=== PATIENT | female | born 1975 | race Two or more races ===

== ENCOUNTER 2024-12-22 12:54 | Emergency (ER) | payer BC, SELFPAY ==
[2024-12-22] VITALS (11 sets, daily range): BP systolic 104–150; BP diastolic 65–107
--- NOTE | 2024-12-22 13:02 | ED.GENMED ---
History of Present Illness
General
Chief Complaint: Allergic Reaction
Time Seen by Provider: 12/22/24 13:02
History of Present Illness
History of Present Illness:
FOCUSED PAST MEDICAL HISTORY
- No significant past medical history
REVIEW OF OLD RECORDS
- No old records available for review in [facility]
Note:
CHIEF COMPLAINT(S)
Throat swelling following consumption of a chestnut.
HISTORY OF PRESENT ILLNESS
The patient is a 49-year-old female who presented to the emergency department due to the sensation of throat swelling, onset approximately 10 minutes after consuming part of a chestnut that fell from a chestnut tree. The patient described a
sensation of her throat closing up and noted nasal involvement as well, although specific symptoms were not delineated. The patient did not self-administer epinephrine at home and does not have a known allergy to tree nuts, despite her relative
having such an allergy.
PHYSICAL EXAM
General: The patient has evidence of an acute allergic reaction which is at least moderate in nature
Skin: Warm, dry.
Head: Normocephalic, atraumatic.
Neck: Supple, trachea midline.
Ear, Nose, Mouth, and Throat: Oral mucosa moist, base of the uvula mild to moderately swollen. Dysphonia noted
Cardiovascular: Normal peripheral perfusion, no edema.
Respiratory: Respirations are non-labored. Clear lungs without wheeze
Gastrointestinal: Abdomen nondistended.
Back: Normal range of motion, normal alignment.
Musculoskeletal: Normal ROM, normal strength.
Neurological: Alert and oriented to person, place, time, and situation. No focal neurological deficit observed.
Psychiatric: Cooperative, appropriate mood and affect.
PROBLEM LIST
Acute:
- Throat swelling post-ingestion of chestnut.
PLAN
- Immediate administration of epinephrine.
- Establishment of intravenous access for administration of medications.
- Administration of intravenous Benadryl, Pepcid, and a dose of dexamethasone.
- Monitor the patients status closely.
DIFFERENTIAL DIAGNOSIS
The Differential Diagnosis includes, in no particular order and is not limited to:
1. Anaphylaxis
2. Allergic reaction to tree nuts
3. Angioedema
4. Foreign body aspiration
5. Airway obstruction
6. Vocal cord dysfunction
7. Food intolerance
8. Esophageal spasm
9. Upper respiratory tract infection
10. Anxiety-induced globus sensation
SUMMARY OF ENCOUNTER
The patient is a 49-year-old female who presented to the emergency department with throat swelling after consuming a chestnut. She experienced a sensation of throat closure and nasal symptoms. She did not use epinephrine prior to arrival. Upon
evaluation, she was alert but reported discomfort and swelling. Epinephrine was administered in the emergency department, after which the patient reported significant improvement in symptoms, including improved nasal patency and throat comfort. The
patient was monitored for improvement, and her symptoms diminished with treatment.
DISPOSITION
Discharge.
EMERGENCY TREATMENTS ADMINISTERED
Epinephrine was administered. IV steroids and IV Benadryl and IV Pepcid were also given.
PLAN
The patient is being discharged with a prescription for epinephrine for future use and a short course of steroids to be taken for three days, unless there are no symptoms upon waking the next day. The patient was educated on self-administration of
epinephrine in case of future allergic reactions.
PATIENT EDUCATION AND COUNSELING
The patient was advised on the signs of allergic reactions and instructed on how to administer epinephrine. She was informed to take steroids for the next three days unless asymptomatic the following day.
FOLLOW-UP INSTRUCTIONS
The patient should follow up with her primary care provider for further evaluation of potential tree nut allergies and further management.
MEDICATION RECONCILIATION
- Prescription for epinephrine auto-injector.
- Prescription for steroids to be taken over the next three days unless symptoms do not persist.
MEDICAL DECISION MAKING
- Complexity of Data Reviewed: Acute issue of throat swelling post-ingestion of chestnut with the differential diagnosis including anaphylaxis, allergic reaction to tree nuts, angioedema, airway obstruction, vocal cord dysfunction, food intolerance,
and anxiety-induced globus sensation.
- Risk: Prescription medication was prescribed for future management of potential anaphylaxis. The decision to discharge was made as her symptoms were well-controlled upon reevaluation, vitals were stable, and the patient agreed with discharge plan
and is reliable for follow-up.
DIAGNOSIS
- Allergic reaction/angioedema
UPDATE
- The patient was given IM epinephrine, IV steroids, IV Pepcid, and IV Benadryl. Initial vital signs unremarkable
- Overall significantly improved on reassessment
Phy Exam
Physical Exam
Physical Exam:
See HPI
Course
Orders/Labs/Results
Orders:
Orders
12/22/24 13:07
IV Insert/Care/Rem.- Treatment PRN
Dexamethasone Sod Phosphate [Decadron] 10 mg IV NOW STA
Diphenhydramine [Benadryl] 25 mg IV NOW STA
EPINEPHrine PF [Adrenalin] 0.3 mg IM NOW STA
Famotidine [Pepcid] 20 mg IV NOW STA
Pulse Ox/cont/shift [RESP] Stat
Quantity: 1
12/22/24 13:08
EPINEPHrine PF [Adrenalin] 1 mg .ROUTE .STK-MED ONE
12/22/24 13:09
Famotidine [Pepcid] 20 mg .ROUTE .STK-MED ONE
Vital Signs
Initial and Last Documented VS:
Initial Vital Signs
Temp Pulse Resp BP Pulse Ox
36.8 C 85 15 150/107 97
12/22/24 12:57 12/22/24 12:57 12/22/24 12:57 12/22/24 12:57 12/22/24 12:57
Last Documented Vital Signs
Temp Pulse Resp BP Pulse Ox
36.8 C 88 19 104/65 100
12/22/24 12:57 12/22/24 13:45 12/22/24 13:45 12/22/24 13:40 12/22/24 13:45
*Pulse Oximetry
SaO2: 97
Oxygen Mode of Delivery: Room air
Patient hypoxic: no
*Critical Care Note
Total Time (30-74mins, 75-104mins- exclusive of procedures): Not Applicable
ED Attending Note
-
Portions of this chart may have been created with voice recognition software.� Occasional wrong word or��sound alike� substitutions may have occurred due to the inherent limitations of voice recognition software.
Discharge Plan
Departure
Patient Disposition: Home (Routine Discharge)
Date of Disposition: 12/22/24
Time of Disposition: 14:40
Patient with high blood pressure during this ER visit?: Yes
Discharge Problem:
Allergic reaction, Angio-edema
Prescriptions:
New
epinephrine [EpiPen 2-Kar] 0.3 mg/0.3 mL auto-injector
0.3 mg IM Q5-15M PRN (Reason: anaphylaxis) Qty: 2 0RF
prednisone 50 mg tablet
50 mg PO DAILY Qty: 3 0RF
Referrals:
Minh Steele MD [Family Provider, Internal Medicine]
Activity Restrictions/Additional Instructions:
I sent a prescription for an EpiPen to your pharmacy. I also sent a prescription for prednisone to the pharmacy. If you have no further symptoms tomorrow, you do not have to take any further prednisone. I do recommend that you take additional
Benadryl and Pepcid today if mild symptoms persist. Return here if worse or other concerns.
Interventions
Interventions:
*Risk Screen - Suicide Last Done: 12/22/24 12:57
*General Assessment Last Done: 12/22/24 12:57
*Neglect/Abuse Screening Last Done: 12/22/24 12:57
*ED COVID-19 Vaccine History Last Done: 12/22/24 12:57
*ED Influenza Vaccine History Last Done: 12/22/24 12:57
ED- Cardiac Assessment Last Done: 12/22/24 13:32
ED- Pulmonary Assessment Last Done: 12/22/24 13:32
ED-Skin Assessment Last Done: 12/22/24 13:32
Discharge Date and Time
Print Language: GREENLANDIC
[2024-12-22] MEDS: PEPCID 20 MG IV (13:11)
[2024-12-22] MEDS: DECADRON 10 MG IV (13:11)
[2024-12-22] MEDS: ADRENALIN 0.3 MG IM (13:11)
[2024-12-22] MEDS: BENADRYL 25 MG IV (13:12)
== END 2024-12-22 14:57 | disposition home or self-care (01) ==
LOC: EMR 12:54
PROVIDERS: EMERGENCY PHYSICIAN Emergency Medicine; FAMILY PHYSICIAN Internal Medicine
DX: T78.3XXA Angioneurotic edema, initial encounter (principal); T78.1XXA Other adverse food reactions, not elsewhere classified, initial encounter; X58.XXXA Exposure to other specified factors, initial encounter
CPT/HCPCS: 96374; 96375; 96372; 99284